=== PATIENT | male | born 1965 | race Caucasian/White ===

== ENCOUNTER 2024-07-18 01:36 | Emergency (ER) | payer BC ==
[~2024-07-18] VITALS: Ht 177.8 cm; Wt 82.1 kg
[2024-07-18 02:08] LABS: STREP A SCREEN POSITIVE (Neg)
[2024-07-18] MEDS: LIDOcaine 1% W/epiNEPHrine 1:100,000 20ml vial IJ ONE (02:35)
[2024-07-18] MEDS: ketorolac trometh 15mg/ml vial 15 MG/ML ML IV ONE (02:38)
[2024-07-18] MEDS: dexamethasone sod phosphate 10mg/ml inj IV STA (02:38)
[2024-07-18] MEDS: normal saline 1000ml 1,000 ML IV ONE (02:38)
[2024-07-18] MEDS: acetaminophen 1,000mg/100ml IV 100 ML IV ONE (02:41)
[2024-07-18] MEDS: ampicillin inj 2 GM in normal saline 100ml IV soln 100 ML IV ONE (03:18)
[2024-07-18] MEDS ORDERED: AMOX-115 PO (03:21)
[2024-07-18] MEDS ORDERED: PRED20TA PO (03:21)
[2024-07-18 04:44] VITALS: BP 135/99; PULSE 83; RESP 16; TEMP 98; O2SAT 95
== END 2024-07-18 04:47 | disposition home or self-care (01) ==
LOC: ER 01:39
DX: J36 Peritonsillar abscess (principal); Z20.822 Contact with and (suspected) exposure to COVID-19
CPT/HCPCS: 10160; 36415; 87811; 87880; 96365; 96368; 96375; 99284; J0131; J0290; J1100; J1885; J7030